=== PATIENT | male | born 1960 | race Two or more races ===

== ENCOUNTER 2024-05-17 10:00 | Inpatient (IN) | payer OTHER ==
[~2024-05-17] VITALS: Ht 274.3 cm; Wt 83.9 kg
[2024-05-17] MEDS ORDERED: ATORVASTATIN CA10 MG PO (12:49)
[2024-05-17] MEDS ORDERED: CLOBETASOL EMOL15 GM (12:49)
[2024-05-17] MEDS ORDERED: MICARDIS40 MG PO (12:50)
[2024-05-17 17:26] LABS: COL EPI 117 SECONDS (82-175)
[2024-05-21] MEDS ORDERED: AMLODIPINE BESYL5 MG (13:26)
[2024-05-21] MEDS ORDERED: MORPHINE SULFATE 4 MG/ML CARTRIDGE IV PRN (13:45)
[2024-05-21] MEDS ORDERED: DEXTROSE 50 % IN WATER 0.5 G/ML DISP.SYRIN IV PRN (13:45)
[2024-05-21] MEDS ORDERED: ONDANSETRON HCL 2 MG/ML VIAL IV PRN (13:45)
[2024-05-21] MEDS ORDERED: OxyCODONE HCL 5 MG TABLET (ROXICODONE) PO PRN (13:45)
[2024-05-21] MEDS ORDERED: 0.9 % SODIUM CHLORIDE 1,000 ML IV SCH (13:45)
[2024-05-21] MEDS ORDERED: ACETAMINOPHEN 500 MG GEL..CAP PO SCH (14:00)
[2024-05-21] MEDS ORDERED: CEFTRIAXONE SODIUM 2,000 MG VIAL IV ONE (14:15)
[2024-05-21] MEDS ORDERED: METRONIDAZOLE/SODIUM CHLORIDE 500 MG/100 ML PIGGYBACK IV ONE (14:15)
[2024-05-21] MEDS ORDERED: MORPHINE SULFATE 4 MG/ML VIAL IV ONE ×2 (16:40→17:45)
[2024-05-21] MEDS ORDERED: POLYETHYLENE GLYCOL 3350 17 GM BLIST.PACK PO SCH (17:00)
[2024-05-21] MEDS ORDERED: HYOSCYAMINE SULFATE 0.125 MG TAB.SUBL SL SCH (17:00)
[2024-05-21] MEDS ORDERED: GABAPENTIN 300 MG CAPSULE PO SCH (17:00)
[2024-05-21 18:50] VITALS: BP 161/85; O2SAT 96
[2024-05-21 18:57] LABS: HEMATOCRIT 45.4 % (39.0-48.0); MEAN CELL VOLUME 86.5 fL (80.0-100.00); MEAN CORPUSCULAR HEMOGLOBIN 28.6 pg (27.00-32.0); RED BLOOD COUNT 5.25 M/uL (4.00-6.00); RED CELL DISTRIBUTION WIDTH 13.6 % (11.5-14.5)
[2024-05-21 19:12] LABS: ALBUMIN 3.6 gm/dL (3.4-5.0); CALCIUM 8.8 mg/dL (8.5-10.1); CREATININE SERUM 1.08 mg/dL (0.70-1.30); GFR 68.83; MAGNESIUM 1.9 mg/dL (1.8-2.4); PHOSPHOROUS 2.2 mg/dL (2.5-4.9); POTASSIUM 3.77 mEq/L (3.5-5.1)
[2024-05-21] MEDS ORDERED: ENALAPRILAT DIHYDRATE 1.25 MG/ML VIAL IV PRN (19:15)
[2024-05-21 19:16] LABS: PLATELET COUNT 107 K/uL (150-450)
[2024-05-21] MEDS ORDERED: AMLODIPINE BESYLATE 5 MG TABLET PO SCH (21:00)
[2024-05-21] MEDS ORDERED: FAMOTIDINE/PF 20 MG/2 ML VIAL IV PUSH SCH (21:00)
[2024-05-21] MEDS ORDERED: PATIENTS OWN MEDICATION (MEDICAMENTO EN PISO) PO SCH (21:00)
[2024-05-22] VITALS: BP 142/77; O2SAT 97
[2024-05-22 06:18] LABS: HEMATOCRIT 45.2 % (39.0-48.0); HEMOGLOBIN 15.1 g/dL (13-16.00); MEAN CELL VOLUME 86.3 fL (80.0-100.00); MEAN CORPUSCULAR HEMOGLOBIN 28.9 pg (27.00-32.0); MEAN CORPUSCULAR HGB CONC 33.5 g/dl (32.0-36.0); PLATELET COUNT 153 K/uL (150-450); RED BLOOD COUNT 5.23 M/uL (4.00-6.00); RED CELL DISTRIBUTION WIDTH 13.6 % (11.5-14.5)
[2024-05-22 06:48] LABS: ALBUMIN 3.4 gm/dL (3.4-5.0); CALCIUM 8.8 mg/dL (8.5-10.1); CREATININE SERUM 1.01 mg/dL (0.70-1.30); GFR 74.37; MAGNESIUM 1.9 mg/dL (1.8-2.4); PHOSPHOROUS 2.8 mg/dL (2.5-4.9); POTASSIUM 4.31 mEq/L (3.5-5.1)
[2024-05-22 08:22] VITALS: BP 138/83; O2SAT 96
[2024-05-22 16:12] VITALS: BP 154/78; O2SAT 94
[2024-05-22] MEDS ORDERED: ATORVASTATIN CALCIUM 10 MG TABLET PO SCH (17:00)
[2024-05-22] MEDS ORDERED: ENOXAPARIN SODIUM 40 MG/0.4 ML SYRINGE SUBCUTANEO SCH (17:00)
[2024-05-23 00:20] VITALS: BP 129/70; O2SAT 98
[2024-05-23 06:19] LABS: HEMATOCRIT 42.2 % (39.0-48.0); HEMOGLOBIN 14.6 g/dL (13-16.00); MEAN CELL VOLUME 85.5 fL (80.0-100.00); MEAN CORPUSCULAR HEMOGLOBIN 29.6 pg (27.00-32.0); MEAN CORPUSCULAR HGB CONC 34.6 g/dl (32.0-36.0); RED BLOOD COUNT 4.94 M/uL (4.00-6.00)
[2024-05-23 06:30] LABS: PLATELET COUNT 128 K/uL (150-450)
[2024-05-23 07:04] LABS: CREATININE SERUM 0.86 mg/dL (0.70-1.30); GFR 89.53; POTASSIUM 4.29 mEq/L (3.5-5.1)
[2024-05-23 07:36] LABS: PHOSPHOROUS 1.7 mg/dL (2.5-4.9)
[2024-05-23 08:00] VITALS: BP 137/78; O2SAT 95
[2024-05-23] MEDS ORDERED: ENOXAPARIN SODIUM 40 MG/0.4 ML SYRINGE SUBCUTANEO SCH (09:00)
[2024-05-23] MEDS ORDERED: POTASSIUM PHOS,M-BASIC-D-BASIC 3 MM/ML VIAL IV NR (11:00)
[2024-05-23 16:58] VITALS: BP 147/87; O2SAT 99
[2024-05-24 00:28] VITALS: BP 141/83; O2SAT 97
[2024-05-24 10:12] VITALS: BP 136/84; O2SAT 98
[2024-05-24] MEDS ORDERED: HYOSCYAMINE0.125 M1 SL (12:45)
[2024-05-24] MEDS ORDERED: INTESTINEX680 M1 PO (12:45)
== END 2024-05-24 15:00 | disposition home or self-care (01) | DRG 331 ==
LOC: O/R 05-21 06:24 → SURG 05-21 06:24 → SURH 05-21 07:00 → SURG 05-21 17:27
PROVIDERS: Internal Medicine Geriatric Medicine; ADMIT Surgery; ATTEND Surgery
PROC: 0DBP4ZZ Excision of Rectum, Percutaneous Endoscopic Approach (ICD-10-PCS; 2024-05-21)
PROC: 07BC4ZZ Excision of Pelvis Lymphatic, Percutaneous Endoscopic Approach (ICD-10-PCS; 2024-05-21)
PROC: 0DJD8ZZ Inspection of Lower Intestinal Tract, Via Natural or Artificial Opening Endoscopic (ICD-10-PCS; 2024-05-21)
PROC: 0DTN4ZZ Resection of Sigmoid Colon, Percutaneous Endoscopic Approach (ICD-10-PCS; principal; 2024-05-21 07:00)
DX: C19 Malignant neoplasm of rectosigmoid junction (principal); R59.0 Localized enlarged lymph nodes; I11.9 Hypertensive heart disease without heart failure

== ENCOUNTER 2024-05-29 06:21 | Emergency (ER) | payer OTHER ==
[~2024-05-29] VITALS: Ht 175.3 cm; Wt 85.3 kg
[~2024-05-29 06:21] MED LIST: AMLODIPINE BESYL5 MG; ATORVASTATIN CA10 MG PO; CLOBETASOL EMOL15 GM; HYOSCYAMINE0.125 M1 SL; INTESTINEX680 M1 PO; MICARDIS40 MG PO
[2024-05-29] MEDS ORDERED: BIOTIN1 M1 (06:27)
[2024-05-29] MEDS ORDERED: 0.9 % SODIUM CHLORIDE 1,000 ML IV STA (07:53)
[2024-05-29] MEDS ORDERED: HYOSCYAMINE SULFATE 0.125 MG TAB.SUBL SL STA (07:53)
[2024-05-29] MEDS ORDERED: MORPHINE SULFATE 4 MG/ML VIAL IV STA (07:54)
[2024-05-29] MEDS ORDERED: HYOSCYAMINE SULFATE 0.125 MG TAB.SUBL ONE (08:07)
[2024-05-29 08:12] LABS: HEMOGLOBIN 14.2 g/dL (13-16.00); MEAN CELL VOLUME 84.9 fL (80.0-100.00); MEAN CORPUSCULAR HEMOGLOBIN 28.8 pg (27.00-32.0); MEAN CORPUSCULAR HGB CONC 33.9 g/dl (32.0-36.0); PLATELET COUNT 234 K/uL (150-450); RED BLOOD COUNT 4.94 M/uL (4.00-6.00); RED CELL DISTRIBUTION WIDTH 13.7 % (11.5-14.5)
[2024-05-29 08:34] LABS: ALBUMIN 3.4 gm/dL (3.4-5.0); BILIRUBIN TOTAL 0.61 mg/dL (0.3-1.2); CALCIUM 9.5 mg/dL (8.5-10.1); CREATININE SERUM 0.95 mg/dL (0.70-1.30); GFR 79.81; GLOBULINA 4.2 G/DL (2.4-3.5); POTASSIUM 4.08 mEq/L (3.5-5.1); TOTAL PROTEIN 7.6 gm/dL (6.4-8.2)
[2024-05-29 09:03] LABS: PARTIAL THROMBOPLASTIN TIME 26.5 SECONDS (22.0-34.0); PROTHROMBIN TIME 10.9 SECONDS (9.0-11.5)
[2024-05-29] MEDS ORDERED: PROTONIX40 MG PO (09:23)
[2024-05-29] MEDS ORDERED: SIMETHICONE80 MG PO (09:23)
[2024-05-29] MEDS ORDERED: SIMETHICONE 125 MG CAPSULE PO ONE (09:30)
[2024-05-29] MEDS ORDERED: TRAMADOL HCL 50 MG TABLET PO ONE (09:30)
== END 2024-05-29 10:57 | disposition home or self-care (01) ==
LOC: ER 06:22
DX: R10.32 Left lower quadrant pain (principal); N28.1 Cyst of kidney, acquired; N20.0 Calculus of kidney; Z88.2 Allergy status to sulfonamides; Z88.8 Allergy status to other drugs, medicaments and biological substances; Z91.040 Latex allergy status